=== PATIENT | male | born 1975 | race Caucasian/White ===

== ENCOUNTER 2020-10-30 22:34 | Emergency (ER) | payer MEDICAID ==
[~2020-10-30] VITALS: Ht 170.2 cm; Wt 82.0 kg
[2020-10-30] MEDS ORDERED: ASPIRIN 81MG TABLET PO ONE (23:00)
[2020-10-30 23:36] LABS: BASOPHILS % 0.5 % (0.0-2.0); HEMATOCRIT. 38.6 % (42.0-52.0); HEMOGLOBIN. 13.1 g/dL (14.0-18.0); MEAN CORPUSCULAR HEMOGLOBIN 29.8 pg (28.0-32.0); MEAN CORPUSCULAR VOLUME 87.9 fL (80.0-94.0); MEAN PLATELET VOLUME 8.7 fl (7.4-10.4); MONOCYTES % 6.3 % (2.0-8.0); NEUTROPHILS % 86.2 % (40.0-76.0); PLATELET 279 x1000/uL (130-400); RED BLOOD CELL COUNT 4.39 mill/uL (4.7-6.1); RED CELL DISTRIBUTION WIDTH 14.4 % (11.6-14.6)
[2020-10-30 23:41] LABS: CHLORIDE 107 mEq/L (98-107)
[2020-10-31 01:53] VITALS: BP 100/62
== END 2020-10-31 04:34 | disposition home or self-care (01) ==
LOC: ER 22:34
DX: F15.10 Other stimulant abuse, uncomplicated (principal); R07.89 Other chest pain; R44.0 Auditory hallucinations
CPT/HCPCS: 36415; 71045; 80053; 83880; 84484; 85025; 93005; 99285; Z7610

== ENCOUNTER 2020-11-29 05:40 | Emergency (ER) | payer MEDICAID ==
[~2020-11-29] VITALS: Ht 170.2 cm; Wt 82.0 kg
[2020-11-29 05:43] VITALS: BP 140/91
[2020-11-29] MEDS ORDERED: MUPI15CR11 TP (08:30)
[2020-11-29] MEDS ORDERED: CEPH500C2 MT (08:30)
== END 2020-11-29 09:09 | disposition home or self-care (01) ==
LOC: ER 05:57
DX: R21 Rash and other nonspecific skin eruption (principal); F15.10 Other stimulant abuse, uncomplicated
CPT/HCPCS: 82962; 87070; 87077; 87186; 99283